=== PATIENT | male | born 1965 | race Caucasian/White ===

== ENCOUNTER 2021-02-02 10:30 | Emergency (ER) | payer SELFPAY ==
[~2021-02-02] VITALS: Ht 170.2 cm; Wt 68.9 kg
[2021-02-02 10:45] VITALS: BP 120/58
--- NOTE | 2021-02-02 10:54 | NUR ---
The patient bibs for medrefill tramadol, denies drugs or alcohol. Alert and oriented x4. Respiration regular and unlabored. Will continue to monitor the patient. Addendum: 02/02/21 at 1058 by [email or web address] The patient c/o left shoulder pain 10/07. No apparent deformity on the shoulder.
[2021-02-02] MEDS ORDERED: TRAMADOL HCL 50 MG TABLET ONE (10:55)
--- NOTE | 2021-02-02 10:59 | NUR ---
Patient discharged to home in stable condition. Written and verbal after care instructions given. Patient verbalizes understanding of instruction.
[2021-02-02] MEDS ORDERED: TRAMADOL HCL 50 MG TABLET PO ONE (11:00)
== END 2021-02-02 10:59 | disposition home or self-care (01) ==
LOC: ER 10:34
DX: G89.29 Other chronic pain (principal); F41.9 Anxiety disorder, unspecified; Z76.0 Encounter for issue of repeat prescription